=== PATIENT | female | born 1960 | race Caucasian/White ===

== ENCOUNTER 2020-01-26 17:53 | Emergency (ER) | payer OTHER ==
[~2020-01-26] VITALS: Ht 152.4 cm; Wt 70.3 kg
[2020-01-26 18:07] VITALS: BP 175/114
[2020-01-26] MEDS ORDERED: hydrALAZINE 20 MG/ML VIAL IVP ONE (18:15)
[2020-01-26] MEDS ORDERED: KETOROLAC 30 MG/ML VIAL IVP ONE (18:15)
--- NOTE | 2020-01-26 18:15 | NUR ---
PT AMBULATED TO ER BED 02
[2020-01-26] MEDS ORDERED: INSULIN REGULAR, HUMAN 100 UNIT/ML VIAL SUBQ ONE (18:20)
[2020-01-26] MEDS ORDERED: ONDANSETRON 4 MG/2 ML VIAL IVP ONE (18:20)
[2020-01-26] MEDS ORDERED: NACL 0.9% 500 ML IV ONE ×3 (18:20→19:45)
--- NOTE | 2020-01-26 18:27 | NUR ---
59/F C/O ELEVATED BP W/ HEADACHE AND ELEVATED BLOOD SUGAR AT HOME TODAY. COMPLIANT W/ DAILY MEDS. STATES BP IS USUALLY "120s" SBP, BUT IT WAS "188" SBP AT HOME TODAY. STATES POSTERIOR HEADACHE STARTING LAST NIGHT; WEAKNESS AND DIZZINESS STARTING TODAY. BP 175/114 @ TRIAGE FSBS 225 @ TRIAGE PT CONNECTED TO BEDSIDE MONITOR. HX: HTN, DM RX: METFORMIN, HCTZ, BENAZEPRIL, GLIPIZIDE.
--- NOTE | 2020-01-26 18:27 | NUR ---
NAUSEA WITHOUT VOMITING
--- NOTE | 2020-01-26 18:30 | NUR ---
GIFTS OFFICER AT BEDSIDE FOR BLOOD DRAW
--- NOTE | 2020-01-26 18:30 | NUR ---
DENIES CP AND SOB
[2020-01-26 18:38] LABS: BASOPHILS # (AUTO) 0.1 K/uL (0.00-0.22); BASOPHILS % (AUTO) 0.7 % (0.0-2.0); EOSINOPHILS % (AUTO) 0.2 % (0.0-4.0); HEMATOCRIT 44.1 % (36-48); HEMOGLOBIN 14.8 g/dL (12.0-16.0); LYMPHOCYTES # (AUTO) 2.2 K/uL (2.5-16.5); LYMPHOCYTES % (AUTO) 18.9 % (20.5-51.1); MEAN CORPUSCULAR HEMOGLOBIN 30 pg (27-31); MEAN CORPUSCULAR HGB CONC 34 g/dL (33-37); MEAN CORPUSCULAR VOLUME 89.2 fL (80-94); MONOCYTES # (AUTO) 0.5 K/uL (0.8-1.0); MONOCYTES % (AUTO) 4.6 % (1.7-9.3); NEUTROPHILS # (AUTO) 8.7 K/uL (1.8-7.7); NEUTROPHILS % (AUTO) 75.6 % (42.2-75.2); PLATELET COUNT (AUTO) 307 K/uL (140-450); RED BLOOD CELL COUNT(AUTO) 4.94 MIL/uL (4.20-5.40); RED CELL DISTRIBUTION WIDTH 13.1 % (11.6-13.7); WHITE BLOOD COUNT (AUTO) 11.5 K/uL (4.8-10.8)
[2020-01-26 18:45] LABS: CARBON DIOXIDE 28.3 mmol/L (21-32); CREATININE 1.1 mg/dL (0.6-1.3); POTASSIUM 3.3 mmol/L (3.5-5.1)
[2020-01-26] MEDS ORDERED: POTASSIUM CHLORIDE 10 MEQ TABER PO ONE ×3 (18:50→19:41)
[2020-01-26 18:51] LABS: TOTAL BILIRUBIN 0.4 mg/dL (0.0-1.0)
--- NOTE | 2020-01-26 19:09 | NUR ---
REPORT TO CAROLYN CHIN. TRANSFER OF CARE AT THIS TIME.
--- NOTE | 2020-01-26 19:09 | NUR ---
Only 30mEQ K dur in [facility]. Pulled out 30mEQ K dur and med given to manager mission ELSY Saha. Called House sup to bring 10mEQ K dur.
--- NOTE | 2020-01-26 20:07 | NUR ---
DIGGING MACHINE OPERATOR BROUGHT ADDITIONAL DOSE OF 10MEQ POTASSIUM. PT ADMINISTERED ORDERED DOSE OF 40MEQ POTASSIUM.
--- NOTE | 2020-01-26 21:04 | NUR ---
PT RESTING QUIETLY IN BED. 0/10 PAIN. VSS SIDE RAIL X 1 WILL CONTINUE TO MONITOR.
[2020-01-26 21:41] VITALS: BP 105/65
--- NOTE | 2020-01-28 08:31 | NUR ---
Late entry. Confirmed with RN that 0.9 NS IV completed at 2044
== END 2020-01-26 21:42 | disposition home or self-care (01) ==
LOC: MED 17:53
DX: I10 Essential (primary) hypertension (principal); E11.65 Type 2 diabetes mellitus with hyperglycemia; E87.6 Hypokalemia; R51 Headache
CPT/HCPCS: 36415; 80053; 82948; 85025; 96361; 96372; 96374; 96375; 99284; J0360; J1815; J1885; J2405; J7030

== ENCOUNTER 2021-10-27 17:30 | Emergency (ER) | payer OTHER ==
[~2021-10-27] VITALS: Ht 152.4 cm; Wt 72.1 kg
[2021-10-27 17:39] VITALS: BP 192/96
--- NOTE | 2021-10-27 18:02 | NUR ---
BLOOD SUGAR 358 AT THIS TIME.
[2021-10-27 18:54] VITALS: BP 192/96
--- NOTE | 2021-10-27 18:55 | NUR ---
Patient discharged with v/s stable. Written and verbal after care instructions given and explained. Patient verbalized understanding. Ambulatory with steady gait. All questions addressed prior to discharge. Advised to follow up with PMD.
--- NOTE | 2021-10-27 18:55 | NUR ---
NO NURSING INTERVENTIONS PROVIDED
== END 2021-10-27 18:54 | disposition home or self-care (01) ==
LOC: MED 17:30
DX: M26.602 Left temporomandibular joint disorder, unspecified (principal); E11.9 Type 2 diabetes mellitus without complications; I10 Essential (primary) hypertension
CPT/HCPCS: 81002; 99281; 99282

== ENCOUNTER 2022-02-25 11:31 | Emergency (ER) | payer OTHER ==
[~2022-02-25] VITALS: Ht 152.4 cm; Wt 72.6 kg
[2022-02-25 11:47] VITALS: BP 182/104
--- NOTE | 2022-02-25 11:57 | NUR ---
PT AMBULATED TO BED 8
--- NOTE | 2022-02-25 12:09 | NUR ---
Note undone in EDM - 02/25/22 at 1212 by STELLA 61 Y/O FEMALE BIB SELF C/O HIP/GROIN/BACK PAIN. PT STATES SHE WAS WALKING AT [employer] YESTERDAY AND SLIPPED AND FELL IN RELTAION TO WATER ON GROUND. PT DENIES ROJAS. PT. DENIES N/V/D; SKIN IS PINK/WARM/DRY; AAOX4 WITH EVEN AND STEADY GAIT; LUNGS CLEAR BL; PT DENIES ANY FEVER, CP, SOB, OR COUGH AT THIS TIME; PATIENT STATES PAIN OF 10/10 AT THIS TIME; PATIENT POSITIONED FOR COMFORT; HOB ELEVATED; BEDRAILS UP X2; BED DOWN. PMH: DM, HYPERTENSION, ARTHRITIS ALLERGIES:
--- NOTE | 2022-02-25 12:12 | NUR ---
61 Y/O FEMALE BIB SELF C/O HIP/GROIN/BACK PAIN. PT STATES SHE WAS WALKING AT [employer] YESTERDAY AND SLIPPED AND FELL IN RELTAION TO WATER ON GROUND. PT DENIES ROJAS. PT. DENIES N/V/D; SKIN IS PINK/WARM/DRY; AAOX4 WITH EVEN AND STEADY GAIT; LUNGS CLEAR BL; PT DENIES ANY FEVER, CP, SOB, OR COUGH AT THIS TIME; PATIENT STATES PAIN OF 10/10 AT THIS TIME; PATIENT POSITIONED FOR COMFORT; HOB ELEVATED; BEDRAILS UP X2; BED DOWN. PMH: DM, HYPERTENSION, ARTHRITIS ALLERGIES: CIPRO, BACTRIM DS
--- NOTE | 2022-02-25 12:26 | NUR ---
PT B/P 184/92, PT STATES SHE HAS NOT TAKEN HER HYPERTENSION MEDICATION TODAY. MD FRANCISCO.
[2022-02-25] MEDS ORDERED: KETOROLAC 30 MG/ML VIAL IM ONE (12:30)
[2022-02-25] MEDS ORDERED: CYCLOBENZAPRINE 10 MG TAB PO ONE (12:30)
[2022-02-25] MEDS ORDERED: lisinopriL 20 MG TAB PO ONE (12:30)
[2022-02-25] MEDS ORDERED: CRUSHER, PILL MC ONE (12:42)
--- NOTE | 2022-02-25 13:00 | NUR ---
PT TAKEN TO XR VIA GIRISH
[2022-02-25] MEDS ORDERED: DICL100G5 TP (14:10)
[2022-02-25] MEDS ORDERED: IBUP-1842 PO (14:10)
[2022-02-25] MEDS ORDERED: CYCL-711 PO (14:10)
[2022-02-25 14:28] VITALS: BP 161/84
--- NOTE | 2022-02-25 14:29 | NUR ---
Patient discharged with v/s stable. Written and verbal after care instructions given and explained. Patient alert, oriented and verbalized understanding of instructions. Ambulatory with steady gait. All questions addressed prior to discharge. ID band removed. Patient advised to follow up with PMD. Rx of FLREXERIL, MOTRIN, DICLOFENAC SODIUM given. Patient educated on indication of medication including possible reaction and side effects. Opportunity to ask questions provided and answered.
== END 2022-02-25 14:28 | disposition home or self-care (01) ==
LOC: MED 11:31
DX: M54.50 Low back pain, unspecified (principal); M25.551 Pain in right hip; M25.552 Pain in left hip; E11.9 Type 2 diabetes mellitus without complications; I10 Essential (primary) hypertension; Z79.899 Other long term (current) drug therapy; Z79.1 Long term (current) use of non-steroidal anti-inflammatories (NSAID); Z88.1 Allergy status to other antibiotic agents; Z88.2 Allergy status to sulfonamides
CPT/HCPCS: 72100; 72170; 96372; 99284; J1885; Q0092

== ENCOUNTER 2024-04-15 12:27 | Inpatient (IN) | payer OTHER ==
[~2024-04-15] VITALS: Ht 152.4 cm; Wt 64.9 kg
[~2024-04-15 12:27] MED LIST: CYCL-711 PO; DICL100G32 TP; IBUP-1842 PO
[2024-04-15 12:36] VITALS: BP 137/88; PULSE 88; RESP 17; TEMP 97.5; O2SAT 98
[2024-04-15] MEDS ORDERED: ONDANSETRON 4 MG/2 ML VIAL ONE (13:14)
[2024-04-15] MEDS ORDERED: MORPHINE SULFATE 4 MG/ML SYR ONE (13:15)
[2024-04-15] MEDS: NACL 0.9% 1,000 ML IV ONE (13:24)
[2024-04-15] MEDS: ONDANSETRON 4 MG/2 ML VIAL IVP ONE (13:25)
[2024-04-15] MEDS: MORPHINE SULFATE 4 MG/ML SYR IVP ONE (13:25)
[2024-04-15 13:29] LABS: APPEARANCE,URINE CLEAR (CLEAR); BILIRUBIN,URINE NEGATIVE (NEGATIVE); BLOOD, URINE 1+ (NEGATIVE); COLOR,URINE YELLOW (YELLOW); LEUKOCYTE ESTERASE ,URINE 1+ (NEGATIVE); NITRITE, URINE POSITIVE (NEGATIVE); PROTEIN,URINE 1+ (NEGATIVE); UGLUCOSE NEGATIVE (NEGATIVE); UROBILINOGEN,URINE 0.2 EU/dL (0.2 - 1)
[2024-04-15 13:30] LABS: BASOPHILS # (AUTO) 0.1 K/uL (0.00-0.22); BASOPHILS % (AUTO) 0.5 % (0.0-2.0); EOSINOPHILS # (AUTO) 0.2 K/uL (0-0.4); EOSINOPHILS % (AUTO) 0.9 % (0.0-4.0); HEMATOCRIT 43.8 % (36-48); HEMOGLOBIN 14.5 g/dL (12.0-16.0); LYMPHOCYTES % (AUTO) 15.8 % (20.5-51.1); MEAN CORPUSCULAR HEMOGLOBIN 30 pg (27-31); MEAN CORPUSCULAR HGB CONC 33 g/dL (33-37); MEAN CORPUSCULAR VOLUME 88.9 fL (80-94); MONOCYTES % (AUTO) 5.3 % (1.7-9.3); NEUTROPHILS # (AUTO) 14.9 K/uL (1.8-7.7); NEUTROPHILS % (AUTO) 77.5 % (42.2-75.2); PLATELET COUNT (AUTO) 249 K/uL (140-450); RED BLOOD CELL COUNT(AUTO) 4.92 MIL/uL (4.20-5.40); RED CELL DISTRIBUTION WIDTH 13.6 % (11.6-13.7); WHITE BLOOD COUNT (AUTO) 19.2 K/uL (4.8-10.8)
[2024-04-15 13:41] LABS: BACTERIA,URINE 4+ /HPF (None Seen); RBC,URINE 11-20 (MOD) /HPF (0-5); SQUAMOUS EPITHELIAL CELL,UR 0-3 (FEW) /LPF (0-3 (FEW)); WBC,URINE >25 (MANY) /HPF (0-5)
[2024-04-15 13:46] LABS: BILIRUBIN,DIRECT 0.1 mg/dL (0.0-0.3); TOTAL BILIRUBIN 0.2 mg/dL (0.0-1.0); TOTAL PROTEIN, SERUM 8.4 g/dL (6.4-8.2)
[2024-04-15 13:53] LABS: ANION GAP 11.4 (8-16); CALCIUM 8.9 mg/dL (8.5-10.1); CARBON DIOXIDE 28.9 mmol/L (21-32); CREATININE 0.8 mg/dL (0.6-1.3); POTASSIUM 3.3 mmol/L (3.5-5.1)
[2024-04-15] MEDS: KETOROLAC 30 MG/ML VIAL IVP ONE (14:06)
[2024-04-15] MEDS ORDERED: cefTRIAXone 1,000 MG VIAL ONE (14:17)
[2024-04-15] MEDS ORDERED: BENA20TA PO (14:44)
[2024-04-15] MEDS ORDERED: DEXTROSE 50% 50 ML SYR IVP PRN (15:40)
[2024-04-15] MEDS ORDERED: ZOLPIDEM 5 MG TAB PO PRN (15:40)
[2024-04-15] MEDS ORDERED: ACETAMINOPHEN 325 MG TAB PO PRN (15:40)
[2024-04-15] MEDS ORDERED: ONDANSETRON 4 MG/2 ML VIAL IVP PRN (15:40)
[2024-04-15] MEDS ORDERED: hydrALAZINE 20 MG/ML VIAL IVP PRN (15:40)
[2024-04-15] MEDS ORDERED: LORazepam 1 MG TAB PO PRN (15:40)
[2024-04-15] MEDS: NACL 0.9% 1,000 ML IV SCH (15:47)
[2024-04-15] MEDS ORDERED: LEVOFLOXACIN 750 MG/D5W PREMIX 150 ML IV SCH (16:00)
[2024-04-15] MEDS: BLOOD GLUCOSE MONITORING 1 DEV DEV FS SCH (16:58)
[2024-04-15] MEDS ORDERED: AMPICILLIN/SULBACTAM 3 GM VIAL ONE (18:10)
[2024-04-15] MEDS: AMPICILLIN/SULBACTAM 3 GM in NACL 0.9% 100 ML IV SCH (18:12)
[2024-04-15 19:50] VITALS: PULSE 79; RESP 24; O2SAT 97
[2024-04-16] MEDS: AMPICILLIN/SULBACTAM 3 GM VIAL ONE ×4 (00:02→06:59)
[2024-04-16 05:45] LABS: BASOPHILS # (AUTO) 0.1 K/uL (0.00-0.22); BASOPHILS % (AUTO) 0.5 % (0.0-2.0); EOSINOPHILS % (AUTO) 0.4 % (0.0-4.0); HEMATOCRIT 37.6 % (36-48); HEMOGLOBIN 12.7 g/dL (12.0-16.0); LYMPHOCYTES # (AUTO) 2.6 K/uL (2.5-16.5); LYMPHOCYTES % (AUTO) 20.5 % (20.5-51.1); MEAN CORPUSCULAR HEMOGLOBIN 30 pg (27-31); MEAN CORPUSCULAR HGB CONC 34 g/dL (33-37); MEAN CORPUSCULAR VOLUME 88.4 fL (80-94); MONOCYTES % (AUTO) 8.2 % (1.7-9.3); NEUTROPHILS # (AUTO) 8.8 K/uL (1.8-7.7); NEUTROPHILS % (AUTO) 70.4 % (42.2-75.2); PLATELET COUNT (AUTO) 209 K/uL (140-450); RED BLOOD CELL COUNT(AUTO) 4.25 MIL/uL (4.20-5.40); RED CELL DISTRIBUTION WIDTH 13.5 % (11.6-13.7); WHITE BLOOD COUNT (AUTO) 12.5 K/uL (4.8-10.8)
[2024-04-16 06:06] LABS: ALBUMIN 2.8 g/dL (3.4-5.0); CARBON DIOXIDE 26.4 mmol/L (21-32); CREATININE 0.9 mg/dL (0.6-1.3); POTASSIUM 3.4 mmol/L (3.5-5.1); TOTAL BILIRUBIN 0.6 mg/dL (0.0-1.0); TOTAL PROTEIN, SERUM 6.4 g/dL (6.4-8.2)
[2024-04-16] MEDS: INSULIN LISPRO SLIDING SCALE 100 UNITS/ML VIAL SUBQ PRN (07:21)
[2024-04-16 08:00] VITALS: BP 103/48; PULSE 71; RESP 18; TEMP 98.4; O2SAT 97
[2024-04-16] MEDS: DOCUSATE SODIUM 100 MG GELCAP PO SCH (09:04)
[2024-04-16] MEDS: PANTOPRAZOLE 40 MG INJ VIAL IVP SCH (09:04)
[2024-04-16] MEDS: BENAZEPRIL 20 MG TAB PO SCH (09:04)
[2024-04-16 13:00] VITALS: BP 103/48; PULSE 71; RESP 18; TEMP 98.4; O2SAT 97
[2024-04-16 16:00] VITALS: BP 113/48; PULSE 75; RESP 18; TEMP 98; O2SAT 97
[2024-04-16] MEDS: POTASSIUM CHLORIDE 10 MEQ TABER PO SCH (17:44)
[2024-04-16 20:00] VITALS: BP 117/78; PULSE 73; PULSE 75; PULSE 76; RESP 18; TEMP 98.8; O2SAT 97
[2024-04-17] VITALS (7 sets, daily range): BP systolic 119–146; BP diastolic 56–75; PULSE 63–78; RESP 16–20; TEMP 96.9–98.8; O2SAT 97–99
[2024-04-17 06:16] LABS: BASOPHILS # (AUTO) 0.1 K/uL (0.00-0.22); BASOPHILS % (AUTO) 1.2 % (0.0-2.0); EOSINOPHILS # (AUTO) 0.2 K/uL (0-0.4); EOSINOPHILS % (AUTO) 1.8 % (0.0-4.0); HEMATOCRIT 37.2 % (36-48); HEMOGLOBIN 12.6 g/dL (12.0-16.0); LYMPHOCYTES # (AUTO) 2.7 K/uL (2.5-16.5); LYMPHOCYTES % (AUTO) 29.9 % (20.5-51.1); MEAN CORPUSCULAR HEMOGLOBIN 30 pg (27-31); MEAN CORPUSCULAR HGB CONC 34 g/dL (33-37); MEAN CORPUSCULAR VOLUME 88.7 fL (80-94); MONOCYTES # (AUTO) 0.7 K/uL (0.8-1.0); MONOCYTES % (AUTO) 7.6 % (1.7-9.3); NEUTROPHILS # (AUTO) 5.4 K/uL (1.8-7.7); NEUTROPHILS % (AUTO) 59.5 % (42.2-75.2); PLATELET COUNT (AUTO) 202 K/uL (140-450); RED CELL DISTRIBUTION WIDTH 13.4 % (11.6-13.7)
[2024-04-18] VITALS: BP 146/73; PULSE 65; RESP 19; TEMP 97.8; O2SAT 99
[2024-04-18 04:00] VITALS: BP 129/63; PULSE 59; RESP 18; TEMP 98.8; O2SAT 99
[2024-04-18 06:08] LABS: BASOPHILS # (AUTO) 0.1 K/uL (0.00-0.22); BASOPHILS % (AUTO) 0.9 % (0.0-2.0); EOSINOPHILS # (AUTO) 0.3 K/uL (0-0.4); EOSINOPHILS % (AUTO) 3.5 % (0.0-4.0); HEMATOCRIT 39.9 % (36-48); HEMOGLOBIN 13.5 g/dL (12.0-16.0); LYMPHOCYTES # (AUTO) 2.1 K/uL (2.5-16.5); LYMPHOCYTES % (AUTO) 26.1 % (20.5-51.1); MEAN CORPUSCULAR HEMOGLOBIN 30 pg (27-31); MEAN CORPUSCULAR HGB CONC 34 g/dL (33-37); MEAN CORPUSCULAR VOLUME 88.8 fL (80-94); MONOCYTES # (AUTO) 0.7 K/uL (0.8-1.0); MONOCYTES % (AUTO) 8.3 % (1.7-9.3); NEUTROPHILS # (AUTO) 4.9 K/uL (1.8-7.7); NEUTROPHILS % (AUTO) 61.2 % (42.2-75.2); PLATELET COUNT (AUTO) 213 K/uL (140-450); RED BLOOD CELL COUNT(AUTO) 4.49 MIL/uL (4.20-5.40); RED CELL DISTRIBUTION WIDTH 13.2 % (11.6-13.7)
[2024-04-18 06:18] LABS: ANION GAP 11.8 (8-16); CALCIUM 8.7 mg/dL (8.5-10.1); CARBON DIOXIDE 26.4 mmol/L (21-32); CREATININE 0.9 mg/dL (0.6-1.3); POTASSIUM 4.2 mmol/L (3.5-5.1)
[2024-04-18 08:00] VITALS: BP 136/82; PULSE 64; PULSE 69; RESP 17; RESP 19; TEMP 97.8; O2SAT 99
[2024-04-18 12:00] VITALS: BP 119/63; PULSE 64; RESP 17; TEMP 97.8; O2SAT 99
[2024-04-18] MEDS ORDERED: LEVO-481 PO (15:21)
[2024-04-18 16:00] VITALS: BP 127/64; PULSE 67; RESP 17; TEMP 98; O2SAT 99
[2024-04-18 16:20] VITALS: BP 127/64; PULSE 67; RESP 17; TEMP 98
[2024-04-18] MEDS ORDERED: NITR100C7 PO (23:17)
== END 2024-04-18 16:50 | disposition home or self-care (01) | DRG 872 ==
LOC: MED 12:27 → MTU 15:42
PROVIDERS: ADMIT Student in an Organized Health Care Education/Training Program; ATTEND Student in an Organized Health Care Education/Training Program
DX: A41.9 Sepsis, unspecified organism (principal); N12 Tubulo-interstitial nephritis, not specified as acute or chronic; I10 Essential (primary) hypertension; E11.9 Type 2 diabetes mellitus without complications; E87.6 Hypokalemia; Z79.899 Other long term (current) drug therapy; B96.20 Unspecified Escherichia coli [E. coli] as the cause of diseases classified elsewhere
CPT/HCPCS: 36415; 80048; 80053; 80076; 81001; 82948; 83690; 85025; 87040; 87086; 87186; 96361; 96365; 96375; 99285; J0295; J0696; J1815; J1885; J2270; J2405; J2470